=== PATIENT | female | born 1970 | race Caucasian/White ===

== ENCOUNTER 2016-10-19 20:22 | Emergency (ER) | payer OTHER ==
--- NOTE | 2016-10-19 21:24 | DIAGNOSTIC IMAGING REPORT ---
PROCEDURE: XR ANKLE 3 OR 4 VIEWS - RIGHT INDICATION: TRAUMA/INJURY TECHNIQUE: Four views. COMPARISON: None. FINDINGS: Nondisplaced oblique fracture of the distal fibula with overlying soft tissue swelling. Normal ankle mortise. IMPRESSION: 1. Nondisplaced oblique fracture of the distal right fibula
--- NOTE | 2016-10-19 22:36 | ED CLINICAL REPORT ---
Clinical Report - Physicians/Mid Levels [facility] [address] [place] [address] 10/19/2016 20:23 Patient: ADOLFO DELEON Time Seen: 2029; upon arrival, initial patient contact, initial documentation, patient care assumed. Arrived- By private vehicle. Historian- patient. HISTORY OF PRESENT ILLNESS Chief Complaint: Injury to the right ankle. The injury happened just prior to arrival. The patient sustained a twisting injury while walking (walking on wood steps and wood broke and ankle/foot went thru the step). Occurred at home. Patient is experiencing moderate pain. Patient denies injury to the head or neck. No other injury. REVIEW OF SYSTEMS The patient complains of pain on weight bearing. She has had swelling. No tingling, weakness, numbness or skin laceration. All systems otherwise negative, except as recorded above. PAST HISTORY See nurses notes. PROBLEMS: Depression. Hypertension. Fibromyalgia. SVT. --20:37 Ashish Flores R.N. ADDITIONAL SURGERIES: Ablation. . Right hand surgery. --20:37 Ashish Flores R.N. SOCIAL HISTORY Light tobacco smoker. Occasional alcohol use; consumes wine by the glass. No drug use. No recent travel. Is a local resident. FAMILY HISTORY No significant family medical history. ADDITIONAL NOTES The nursing notes have been reviewed with agreement regarding the chief complaint, HPI, ROS, PMH and patient medications and allergies. PHYSICAL EXAM Vital Signs: 10/19/2016 20:32 BP: 133/102. HR: 88. RR: 18. O2 saturation: 98%. Temp: 98 F. Have been reviewed as abnormal and do not appear to be correct. Hypertensive. Heart rate normal. Respiratory rate normal. Temperature normal. Oxygen saturation normal. Appearance: Alert. Oriented X3. No acute distress. LABS, X-RAYS, AND EKG X-Rays: Right ankle. Rt Ankle X-ray: (IMPRESSION: 1. Nondisplaced oblique fracture of the distal right fibula Electronically Final signed by:Bentley Reid MD 10/19/2016 9:24:17 PM). The X-rays were interpreted by the radiologist and contemporaneously by me. PROGRESS AND PROCEDURES Splint Application: Time: 22:35. Posterior short leg fiberglass splint applied to right lower extremity. Splint applied by tech. Reassessed extremity following splint application. Neurovascular intact. Follow-up recommended within 3 days. Course of Care: splint evaluated, asked tech to redo it, splint was curling around toes. Patient counseled in person regarding the patient's stable condition, test results and diagnosis. 21:04. Differential Diagnosis: Other possible considerations: ankle fx vs sprain. Above considerations are based on history, physical exam and X-Ray data. Differential diagnosis was discussed with patient. Disposition: Discharged home in good and improved condition (22:36). Condition: good and stable. CLINICAL IMPRESSION Closed nondisplaced oblique fracture of the distal aspect of the right fibula. No angulated fracture of the fibula. INSTRUCTIONS Apply ice for 20 minutes four times a day for two days until better. Don't apply ice directly to skin. Use crutches until released. Wear fiberglass splint until released. Elevate affected areas above chest level for two days until better. (htn). Warnings: GENERAL WARNINGS: Return or contact your physician immediately if your condition worsens or changes unexpectedly, if not improving as expected, or if other problems arise. Specifically return if problem worsens. Prescription Medications: [place] 5 mg / 325 mg tablets: take 1 to 2 orally every 6 hours as needed for pain. Dispense fifteen (15). No refills. Substitution is permissible. Motrin 800 mg tablets: take 1 tablet orally every 8 hours as needed for pain. Dispense thirty (30). No refills. Substitution is permissible. Understanding of the discharge instructions verbalized by patient. Follow-up with: Morgan Davidson MD, Orthopedic Surgeon, , [address], [facility], [id number] Follow up in about three days even if well. Call for an appointment. Summary of care provided to patient. (Electronically signed by Stephanie Wiseman A.R.N.P. 10/21/2016 13:02)
--- NOTE | 2016-10-19 22:36 | ED NURSING NOTES ---
Clinical Report - Nurses [facility] [address] [place] [address] 10/19/2016 20:23 Patient: ADOLFO DELEON TRIAGE Triage time 2031. Acuity: LEVEL 4. Chief Complaint: INJURY TO RIGHT ANKLE. --20:41 Ashish Flores R.N. 20:32 10/19/16. BP: 133/102. HR: 88. RR: 18. O2 saturation: 98%. Temp: 98 F. Pain level now 11/10. --20:41 Ashish Flores R.N. Weight: 102.5 kg stated. Height/Length: 68 inches Per Patient. BMI: 34.4. --20:37 Ashish Flores R.N. Medications Acyclovir Oral 400 mg, daily. Nortriptyline HCl Oral 10 mg, at bedtime. OxyCODONE HCl Oral 5 mg, as needed. PrednisoLONE Oral eye drops 1%. Protonix Oral 40 mg, daily. --20:35 Ashish Flores R.N. Cymbalta Oral. --20:37 Ashish Flores R.N. Allergies Hydrocodone. Keflex. --20:35 Ashish Flores R.N. History Arrived by private vehicle. Historian: patient. Accompanied by family. 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 SOCIAL HX: Light tobacco smoker- less than 1/2 a pack per day. Alcohol use; consumes wine by the glass occasionally. No drug use. FALL RISK ASSESSMENT: Fall risk assessment completed. No fall risk identified. NUTRITIONAL RISK ASSESSMENT: The nutritional risk assessment revealed no deficiencies. FUNCTIONAL ASSESSMENT: Functional assessment: no impairments noted. LEARNING NEEDS ASSESSMENT: The learning needs assessment revealed no barriers. SKIN INTEGRITY ASSESSMENT: Skin integrity risk assessment completed. No skin integrity risk identified. --20:41 Ashish Flores R.N. The patient has had trouble walking. --20:41 Ashish Flores R.N. ( pt's walking down flight of 2 steps at her home when the top step of broke and her foot went through to the ground sustaining an ankle injury). --21:00 Ashish Flores R.N. PROBLEMS: Depression. Hypertension. Fibromyalgia. SVT. --20:37 Ashish Flores R.N. ADDITIONAL SURGERIES: Ablation. . Right hand surgery. --20:37 Ashish Flores R.N. Interventions ID band on patient. --20:41 Ashish Flores R.N. PHYSICAL ASSESSMENT To room via wheelchair. GENERAL / NEURO / PSYCH: Oriented X 4. Alert. Appears in no acute distress. Appears in pain. EXTREMITIES: Capillary refill is less than 2 seconds in the extremities. Extremity pulses are within normal limits. Right ankle: swelling. Limited ROM secondary to pain (diminished plantar flexion, dorsiflexion, inversion and eversion). SKIN: Skin intact. Skin is warm and dry. --20:42 Ashish Flores R.N. NURSING PROGRESS NOTES Extremity elevated. Reassurance given. Patient identifiers checked. Call light placed in reach. Bed placed in lowest position. Brakes of bed on. --20:42 Ashish Flores R.N. 22:02 Warm blanket to patient per request. --22:03 Jacobo, Rebecca, LUIS MIGUEL Tech1 22:02 10/19/2016 Hydrocodone-APAP (Hydrocodone-Acetaminophen) PO 5/325 mg Tablets 1 tab given. Allergies verified, confirmed 5 rights and sedative warning given to the patient and patient's family. --22:17 Ashish Flores R.N. Short leg posterior fiberglass lower extremity splint applied to right ankle by tech. Distal pulses intact, sensation intact and motor within normal limits. --22:20 Fabian Razo Short leg posterior fiberglass lower extremity splint applied to right ankle by tech. Distal pulses intact, sensation intact and motor within normal limits. ( New splint needed to be applied). --22:43 Fabian Razo. DISPOSITION / DISCHARGE Departure time: 2245. Condition at departure: improved. No learning barriers present. Discharge instructions provided and reviewed with the patient and family. Reviewed warnings. Reviewed medication(s). Treatments reviewed. Reviewed referrals. Patient and family verbalized understanding. Written instructions provided in Pashto. The patient was discharged by the physician front end assistant. She was discharged home and accompanied by family. She left the Emergency Department on crutches and via private vehicle. Family member driving. FALL RISK ASSESSMENT: Fall risk assessment completed. No fall risk identified. --22:46 Ashish Flores R.N. 22:45 10/19/16. BP: 111/98. HR: 88. RR: 16. O2 saturation: 99%. Temp: 98 F. Pain level now 10/13. --22:46 Ashish Flores R.N. Locked/Released at 10/19/2016 22:46 by Ashish Flores R.N.
--- NOTE | 2016-10-19 22:36 | ED ORDER SUMMARY ---
..... Patient: ADOLFO DELEON OrderSheet [facility] VisitID: [id number] [address] [place] [address] 46y, F Registration Date/Time: 10/19/2016 ORDER SHEET Weight: 102.5 kg (stated) Allergies: Hydrocodone, Keflex GENERAL ORDERS: Ankle 3 or 4V Right Urgent (20:36 10/19/2016 HBivens A.R.N.P.) (Ack 20:37 AMcQuoid ER Tech1) (20:50 AMcQuoid ER Tech1) Splint (LE) (Right) (Short Leg Posterior) (21:59 10/19/2016 HBivens A.R.N.P.) (22:20 Bhupinder) Crutches (22:00 10/19/2016 HBivens A.R.N.P.) (22:24 Miriam R.N.) MEDICATION ORDERS: Hydrocodone-APAP PO 5/325 mg (NOW, HIGH ALERT MEDICATION) (22:00 10/19/2016 HBivens A.R.N.P.) (22:17 Miriam R.N.) IV FLUIDS: ORDER SHEET NOTES: [Electronically signed by Ashish Flores R.N. (22:46 10/19/2016)] [Electronically signed by Stephanie Wiseman A.R.N.P. (13:02 10/21/2016)] [Electronically locked/signed by Ashish Flores R.N. (22:46 10/19/2016)]
--- NOTE | 2016-10-19 22:36 | ED NURSING NOTES ---
Clinical Report - Nurses [facility] [address] [place] [address] 10/19/2016 20:23 Patient: ADOLFO DELEON TRIAGE Triage time 2031. Acuity: LEVEL 4. Chief Complaint: INJURY TO RIGHT ANKLE. --20:41 Ashish Flores R.N. 20:32 10/19/16. BP: 133/102. HR: 88. RR: 18. O2 saturation: 98%. Temp: 98 F. Pain level now 11/10. --20:41 Ashish Flores R.N. Weight: 102.5 kg stated. Height/Length: 68 inches Per Patient. BMI: 34.4. --20:37 Ashish Flores R.N. Medications Acyclovir Oral 400 mg, daily. Nortriptyline HCl Oral 10 mg, at bedtime. OxyCODONE HCl Oral 5 mg, as needed. PrednisoLONE Oral eye drops 1%. Protonix Oral 40 mg, daily. --20:35 Ashish Flores R.N. Cymbalta Oral. --20:37 Ashish Flores R.N. Allergies Hydrocodone. Keflex. --20:35 Ashish Flores R.N. History Arrived by private vehicle. Historian: patient. Accompanied by family. 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 SOCIAL HX: Light tobacco smoker- less than 1/2 a pack per day. Alcohol use; consumes wine by the glass occasionally. No drug use. FALL RISK ASSESSMENT: Fall risk assessment completed. No fall risk identified. NUTRITIONAL RISK ASSESSMENT: The nutritional risk assessment revealed no deficiencies. FUNCTIONAL ASSESSMENT: Functional assessment: no impairments noted. LEARNING NEEDS ASSESSMENT: The learning needs assessment revealed no barriers. SKIN INTEGRITY ASSESSMENT: Skin integrity risk assessment completed. No skin integrity risk identified. --20:41 Ashish Flores R.N. The patient has had trouble walking. --20:41 Ashish Flores R.N. ( pt's walking down flight of 2 steps at her home when the top step of broke and her foot went through to the ground sustaining an ankle injury). --21:00 Ashish Flores R.N. PROBLEMS: Depression. Hypertension. Fibromyalgia. SVT. --20:37 Ashish Flores R.N. ADDITIONAL SURGERIES: Ablation. . Right hand surgery. --20:37 Ashish Flores R.N. Interventions ID band on patient. --20:41 Ashish Flores R.N. PHYSICAL ASSESSMENT To room via wheelchair. GENERAL / NEURO / PSYCH: Oriented X 4. Alert. Appears in no acute distress. Appears in pain. EXTREMITIES: Capillary refill is less than 2 seconds in the extremities. Extremity pulses are within normal limits. Right ankle: swelling. Limited ROM secondary to pain (diminished plantar flexion, dorsiflexion, inversion and eversion). SKIN: Skin intact. Skin is warm and dry. --20:42 Ashish Flores R.N. NURSING PROGRESS NOTES Extremity elevated. Reassurance given. Patient identifiers checked. Call light placed in reach. Bed placed in lowest position. Brakes of bed on. --20:42 Ashish Flores R.N. 22:02 Warm blanket to patient per request. --22:03 Jacobo, Rebecca, LUIS MIGUEL Tech1 22:02 10/19/2016 Hydrocodone-APAP (Hydrocodone-Acetaminophen) PO 5/325 mg Tablets 1 tab given. Allergies verified, confirmed 5 rights and sedative warning given to the patient and patient's family. --22:17 Ashish Flores R.N. Short leg posterior fiberglass lower extremity splint applied to right ankle by tech. Distal pulses intact, sensation intact and motor within normal limits. --22:20 Fabian Razo Short leg posterior fiberglass lower extremity splint applied to right ankle by tech. Distal pulses intact, sensation intact and motor within normal limits. ( New splint needed to be applied). --22:43 Fabian Razo. DISPOSITION / DISCHARGE Departure time: 2245. Condition at departure: improved. No learning barriers present. Discharge instructions provided and reviewed with the patient and family. Reviewed warnings. Reviewed medication(s). Treatments reviewed. Reviewed referrals. Patient and family verbalized understanding. Written instructions provided in Romansh. The patient was discharged by the physician human resources assistant. She was discharged home and accompanied by family. She left the Emergency Department on crutches and via private vehicle. Family member driving. FALL RISK ASSESSMENT: Fall risk assessment completed. No fall risk identified. --22:46 Ashish Flores R.N. 22:45 10/19/16. BP: 111/98. HR: 88. RR: 16. O2 saturation: 99%. Temp: 98 F. Pain level now 10/13. --22:46 Ashish Flores R.N. Locked/Released at 10/19/2016 22:46 by Ashish Flores R.N.
--- NOTE | 2016-10-19 22:36 | ED CLINICAL REPORT ---
Clinical Report - Physicians/Mid Levels [facility] [address] [place] [address] 10/19/2016 20:23 Patient: ADOLFO DELEON Time Seen: 2029; upon arrival, initial patient contact, initial documentation, patient care assumed. Arrived- By private vehicle. Historian- patient. HISTORY OF PRESENT ILLNESS Chief Complaint: Injury to the right ankle. The injury happened just prior to arrival. The patient sustained a twisting injury while walking (walking on wood steps and wood broke and ankle/foot went thru the step). Occurred at home. Patient is experiencing moderate pain. Patient denies injury to the head or neck. No other injury. REVIEW OF SYSTEMS The patient complains of pain on weight bearing. She has had swelling. No tingling, weakness, numbness or skin laceration. All systems otherwise negative, except as recorded above. PAST HISTORY See nurses notes. PROBLEMS: Depression. Hypertension. Fibromyalgia. SVT. --20:37 Ashish Flores R.N. ADDITIONAL SURGERIES: Ablation. . Right hand surgery. --20:37 Ashish Flores R.N. SOCIAL HISTORY Light tobacco smoker. Occasional alcohol use; consumes wine by the glass. No drug use. No recent travel. Is a local resident. FAMILY HISTORY No significant family medical history. ADDITIONAL NOTES The nursing notes have been reviewed with agreement regarding the chief complaint, HPI, ROS, PMH and patient medications and allergies. PHYSICAL EXAM Vital Signs: 10/19/2016 20:32 BP: 133/102. HR: 88. RR: 18. O2 saturation: 98%. Temp: 98 F. Have been reviewed as abnormal and do not appear to be correct. Hypertensive. Heart rate normal. Respiratory rate normal. Temperature normal. Oxygen saturation normal. Appearance: Alert. Oriented X3. No acute distress. LABS, X-RAYS, AND EKG X-Rays: Right ankle. Rt Ankle X-ray: (IMPRESSION: 1. Nondisplaced oblique fracture of the distal right fibula Electronically Final signed by:Bentley Reid MD 10/19/2016 9:24:17 PM). The X-rays were interpreted by the radiologist and contemporaneously by me. PROGRESS AND PROCEDURES Splint Application: Time: 22:35. Posterior short leg fiberglass splint applied to right lower extremity. Splint applied by tech. Reassessed extremity following splint application. Neurovascular intact. Follow-up recommended within 3 days. Course of Care: splint evaluated, asked tech to redo it, splint was curling around toes. Patient counseled in person regarding the patient's stable condition, test results and diagnosis. 21:04. Differential Diagnosis: Other possible considerations: ankle fx vs sprain. Above considerations are based on history, physical exam and X-Ray data. Differential diagnosis was discussed with patient. Disposition: Discharged home in good and improved condition (22:36). Condition: good and stable. CLINICAL IMPRESSION Closed nondisplaced oblique fracture of the distal aspect of the right fibula. No angulated fracture of the fibula. INSTRUCTIONS Apply ice for 20 minutes four times a day for two days until better. Don't apply ice directly to skin. Use crutches until released. Wear fiberglass splint until released. Elevate affected areas above chest level for two days until better. (htn). Warnings: GENERAL WARNINGS: Return or contact your physician immediately if your condition worsens or changes unexpectedly, if not improving as expected, or if other problems arise. Specifically return if problem worsens. Prescription Medications: [place] 5 mg / 325 mg tablets: take 1 to 2 orally every 6 hours as needed for pain. Dispense fifteen (15). No refills. Substitution is permissible. Motrin 800 mg tablets: take 1 tablet orally every 8 hours as needed for pain. Dispense thirty (30). No refills. Substitution is permissible. Understanding of the discharge instructions verbalized by patient. Follow-up with: Morgan Davidson MD, Orthopedic Surgeon, , [address], [facility], [id number] Follow up in about three days even if well. Call for an appointment. Summary of care provided to patient. (Electronically signed by Stephanie Wiseman A.R.N.P. 10/21/2016 13:02)
--- NOTE | 2016-10-19 22:36 | ED ORDER SUMMARY ---
..... Patient: ADOLFO DELEON OrderSheet [facility] VisitID: [id number] [address] [place] [address] 46y, F Registration Date/Time: 10/19/2016 ORDER SHEET Weight: 102.5 kg (stated) Allergies: Hydrocodone, Keflex GENERAL ORDERS: Ankle 3 or 4V Right Urgent (20:36 10/19/2016 HBivens A.R.N.P.) (Ack 20:37 AMcQuoid ER Tech1) (20:50 AMcQuoid ER Tech1) Splint (LE) (Right) (Short Leg Posterior) (21:59 10/19/2016 HBivens A.R.N.P.) (22:20 Bhupinder) Crutches (22:00 10/19/2016 HBivens A.R.N.P.) (22:24 Miriam R.N.) MEDICATION ORDERS: Hydrocodone-APAP PO 5/325 mg (NOW, HIGH ALERT MEDICATION) (22:00 10/19/2016 HBivens A.R.N.P.) (22:17 Miriam R.N.) IV FLUIDS: ORDER SHEET NOTES: [Electronically signed by Ashish Flores R.N. (22:46 10/19/2016)] [Electronically signed by Stephanie Wiseman A.R.N.P. (13:02 10/21/2016)] [Electronically locked/signed by Ashish Flores R.N. (22:46 10/19/2016)]
--- NOTE | 2016-10-21 13:02 | ED MED RECONCILIATION SUMMARY ---
Patient: ADOLFO DELEON Medication Reconciliation Report [facility] VisitID: [id number] [address] [place] [address] 46y, F Registration Date/Time: 10/19/2016 Weight: 102.5 kg Height/Length: 68 in. BMI: 34.4 ALLERGIES: Hydrocodone, Keflex The patient's Home Medications are listed below: THE FOLLOWING MEDICATIONS NEED TO BE RECONCILED: Acyclovir Oral 400 mg, daily Cymbalta Oral Nortriptyline HCl Oral 10 mg, at bedtime OxyCODONE HCl Oral 5 mg PrednisoLONE Oral eye drops 1% Protonix Oral 40 mg, daily The source(s) of the original Home Medication information: Not obtained. The following Medications were given to the patient in the Emergency Department: Hydrocodone-APAP [PO] PO 1 tab, administered: 10/19/2016 10:02:00 PM The following Medications were prescribed to the patient: [place] 5 mg / 325 mg tablets: take 1 to 2 orally every 6 hours as needed for pain. Dispense fifteen (15). No refills. Substitution is permissible. -- Stephanie Wiseman, Jigar.R.N.P. Motrin 800 mg tablets: take 1 tablet orally every 8 hours as needed for pain. Dispense thirty (30). No refills. Substitution is permissible. -- Stephanie Wiseman A.R.N.P.
--- NOTE | 2016-10-21 13:02 | ED DISCHARGE INSTRUCTIONS ---
Patient: ADOLFO DELEON General Instructions [facility] VisitID: [id number] [address], [place], [place] [id number] 46y, F Registration Date/Time: 10/19/2016 Closed nondisplaced oblique fracture of the distal aspect of the right fibula. No angulated fracture of the fibula. INSTRUCTIONS Apply ice for 20 minutes four times a day for two days until better. Don't apply ice directly to skin. Use crutches until released. Wear fiberglass splint until released. Elevate affected areas above chest level for two days until better. (htn). Warnings: GENERAL WARNINGS: Return or contact your physician immediately if your condition worsens or changes unexpectedly, if not improving as expected, or if other problems arise. Specifically return if problem worsens. Prescription Medications: [place] 5 mg / 325 mg tablets: take 1 to 2 orally every 6 hours as needed for pain. Dispense fifteen (15). No refills. Substitution is permissible. Motrin 800 mg tablets: take 1 tablet orally every 8 hours as needed for pain. Dispense thirty (30). No refills. Substitution is permissible. Understanding of the discharge instructions verbalized by patient. Follow-up with: Morgan Davidson MD, Orthopedic Surgeon, , [address] [facility] [id number] Follow up in about three days even if well. Call for an appointment. Summary of care provided to patient. ADDITIONAL INFORMATION Fracture,Ankle, Distal Fibula You have a fracture (broken bone) of the end of the fibula bone. This is one of two bones that support the ankle joint. Home Care: You will be given a splint, cast or special boot to prevent movement at the site of injury. Do not put weight on a splint; it will break. Follow your doctor's advice regarding when to begin bearing weight on a cast or boot. Keep your leg elevated when sitting or lying down. When sleeping, place a pillow under the injured leg. When sitting, support the injured leg so it is level with your waist. This is very important during the first 48 hours. Keep the cast/splint completely dry at all times. When bathing, protect the cast/splint with a large plastic bag, rubber-banded at the top end. If a fiberglass cast or splint gets wet, you can dry it with a hair-dryer. Place an ice pack (ice cubes in a plastic bag, wrapped in a towel) on the splint/cast over the injured area for 20 minutes every 2 hours during the first day.You can place the ice pack directly over the splint/cast. Continue this 3-4 times a day for the next two days. You may use acetaminophen (Tylenol) or ibuprofen (Motrin, Advil) to control pain, unless another pain medicine was prescribed. [NOTE: If you have chronic liver or kidney disease or ever had a stomach ulcer or GI bleeding, talk with your doctor before using these medicines.] Follow Up with your doctor in one week, or as advised by our staff, to be sure the bone is healing properly. If you were given a splint, it may be changed to a cast after the swelling goes down. [NOTE: A radiologist will review any X-rays that were taken. We will notify you of any new findings that may affect your care.] Get Prompt Medical Attention if any of the following occur: The plaster cast or splint becomes wet or soft The fiberglass cast or splint remains wet for more than 24 hours Increased tightness or pain under the cast or splint Toes become swollen, cold, blue, numb or tingly Crutch Walking Crutch Adjustment Make sure the crutches you use are adjusted to fit you. When you stand, there should be room to fit 2-3 fingers between the top of the crutch and your armpit. Your elbow should be slightly bent when holding the hand banjo repair person. Crutch Walking: Place the crutches forward 12" in front of and 6" to the side of your feet. Lean your weight forward as you push down on the handgrips. Your weight should be on your hands and yourstrong leg, not your armpits . Let your body swing through, landing on the strong leg. Advance the crutches forward again. The crutch and the injured leg should move together. Going Up Steps: ("Up with the good") With both crutches on the same step as your feet, push down on the handgrips. Balancing with very light pressure on the weak leg, let your hands support your weight as you raise your strong leg onto the next higher step. Transfer all your weight to your strong leg (still bent) as you move the crutches up to the next step alongside the strong leg. With your weight evenly balanced on the two crutches and your strong leg, straighten your strong knee as you raise the weak leg up to the next step. Going Down Steps: ("Down with the bad") With both crutches on the same step as your feet, push down on the handgrips. With your weight evenly balanced on the two crutches and your strong leg, bend your strong knee as you lower the weak leg down to the next step. Let your strong leg support you (still bent) as you move the crutches down alongside the weak leg. Transfer your weight to your hands, balancing with very light pressure on the weak leg as you lower your strong leg alongside your weak leg. Splint Care, Fiberglass The following will help you care for your splint: It will take up totwo hours for your fiber glass splint to fully harden; therefore, do notapply any pressure on it during that time or else it may break. To prevent swelling under the splint, for thefirst 48 hours: If the splint is on yourarm, keep it in a sling or raised to shoulder level when sitting or standing; rest it on your chest or on a pillow at your side when lying down. If the splint is on yourfoot, keep it propped up above the level of your waist when sitting or lying. Avoid crutch walking as much as possible during this time. Keep the splint/cast dry at all times. Bathe with your splint/cast well out of the water, protected with a large plastic bag, rubber-banded at the top end. If a fiberglass cast or splint gets wet, you can dry it with a hair-dryer. Follow-up care Follow up with your doctor or this facility as advised. When to seek medical care Get prompt medical attention if any of the following occur: Bad odor from the splint or wound-fluid stains the splint The splint cracks or remains wet over 24 hours Increasing tightness or pressure under the splint Fingers or toes become swollen, cold, blue, numb or tingly Increased pain under the splint Hydrocodone Bitartrate, Acetaminophen Oral tablet What is this medicine? ACETAMINOPHEN; HYDROCODONE (a set a RAVI beto fen; brittaney droe KOE done) is a pain reliever. It is used to treat mild to moderate pain. How should I use this medicine? Take this medicine by mouth. Swallow it with a full glass of water. Follow the directions on the prescription label. If the medicine upsets your stomach, take the medicine with food or milk. Do not take more than you are told to take. Talk to your flatwork presser regarding the use of this medicine in children. This medicine is not approved for use in children. What side effects may I notice from receiving this medicine? Side effects that you should report to your doctor or health intensive care unit registered nurse as soon as possible: allergic reactions like skin rash, itching or hives, swelling of the face, lips, or tongue breathing problems confusion feeling faint or lightheaded, falls stomach pain yellowing of the eyes or skin Side effects that usually do not require medical attention (report to your doctor or health intensive care unit registered nurse if they continue or are bothersome): nausea, vomiting stomach upset What may interact with this medicine? alcohol antihistamines isoniazid medicines for depression, anxiety, or psychotic disturbances medicines for sleep muscle relaxants naltrexone narcotic medicines (opiates) for pain phenobarbital ritonavir tramadol What if I miss a dose? If you miss a dose, take it as soon as you can. If it is almost time for your next dose, take only that dose. Do not take double or extra doses. Where should I keep my medicine? Keep out of the reach of children. This medicine can be abused. Keep your medicine in a safe place to protect it from theft. Do not share this medicine with anyone. Selling or giving away this medicine is dangerous and against the law. Store at room temperature between 15 and 30 degrees C (59 and 86 degrees F). Protect from light. Keep container tightly closed. Throw away any unused medicine after the expiration date. Discard unused medicine and used packaging carefully. Pets and children can be harmed if they find used or lost packages. What should I tell my health care provider before I take this medicine? They need to know if you have any of these conditions: brain tumor Crohn's disease, inflammatory bowel disease, or ulcerative colitis drink more than 3 alcohol-containing drinks per day drug abuse or addiction head injury heart or circulation problems kidney disease or problems going to the bathroom liver disease lung disease, asthma, or breathing problems an unusual or allergic reaction to acetaminophen, hydrocodone, other opioid analgesics, other medicines, foods, dyes, or preservatives or trying to get breast-feeding What should I watch for while using this medicine? Tell your doctor or health intensive care unit registered nurse if your pain does not go away, if it gets worse, or if you have new or a different type of pain. You may develop tolerance to the medicine. Tolerance means that you will need a higher dose of the medicine for pain relief. Tolerance is normal and is expected if you take the medicine for a long time. Do not suddenly stop taking your medicine because you may develop a severe reaction. Your body becomes used to the medicine. This does NOT mean you are addicted. Addiction is a behavior related to getting and using a drug for a non-medical reason. If you have pain, you have a medical reason to take pain medicine. Your doctor will tell you how much medicine to take. If your doctor wants you to stop the medicine, the dose will be slowly lowered over time to avoid any side effects. You may get drowsy or dizzy when you first start taking the medicine or change doses. Do not drive, use machinery, or do anything that may be dangerous until you know how the medicine affects you. Stand or sit up slowly. There are different types of narcotic medicines (opiates) for pain. If you take more than one type at the same time, you may have more side effects. Give your health care provider a list of all medicines you use. Your doctor will tell you how much medicine to take. Do not take more medicine than directed. Call emergency for help if you have problems breathing. The medicine will cause constipation. Try to have a bowel movement at least every 2 to 3 days. If you do not have a bowel movement for 3 days, call your doctor or health intensive care unit registered nurse. Too much acetaminophen can be very dangerous. Do not take Tylenol (acetaminophen) or medicines that contain acetaminophen with this medicine. Many non-prescription medicines contain acetaminophen. Always read the labels carefully. Ibuprofen Oral tablet What is this medicine? IBUPROFEN (eye BYOO proe fen) is a non-steroidal anti-inflammatory drug (NSAID). It is used for dental pain, fever, headaches or migraines, osteoarthritis, rheumatoid arthritis, or painful monthly periods. It can also relieve minor aches and pains caused by a cold, flu, or sore throat. How should I use this medicine? Take this medicine by mouth with a glass of water. Follow the directions on the prescription label. Take this medicine with food if your stomach gets upset. Try to not lie down for at least 10 minutes after you take the medicine. Take your medicine at regular intervals. Do not take your medicine more often than directed. A special MedGuide will be given to you by the pharmacist with each prescription and refill. Be sure to read this information carefully each time. Talk to your flatwork presser regarding the use of this medicine in children. Special care may be needed. What side effects may I notice from receiving this medicine? Side effects that you should report to your doctor or health intensive care unit registered nurse as soon as possible: allergic reactions like skin rash, itching or hives, swelling of the face, lips, or tongue black or bloody stools, blood in the urine or in vomit breathing problems changes in vision chest pain general ill feeling or flu-like symptoms nausea or vomiting redness, blistering, peeling or loosening of the skin, including inside the mouth slurred speech or weakness on one side of the body stomach pain unexplained weight gain or swelling unusually weak or tired yellowing of eyes or skin Side effects that usually do not require medical attention (report to your doctor or health intensive care unit registered nurse if they continue or are bothersome): constipation or diarrhea dizziness gas or heartburn stomach upset What may interact with this medicine? Do not take this medicine with any of the following medications: cidofovir ketorolac methotrexate pemetrexed This medicine may also interact with the following medications: alcohol aspirin diuretics lithium other drugs for inflammation like prednisone warfarin What if I miss a dose? If you miss a dose, take it as soon as you can. If it is almost time for your next dose, take only that dose. Do not take double or extra doses. Where should I keep my medicine? Keep out of the reach of children. Store at room temperature between 15 and 30 degrees C (59 and 86 degrees F). Keep container tightly closed. Throw away any unused medicine after the expiration date. What should I tell my health care provider before I take this medicine? They need to know if you have any of these conditions: asthma cigarette smoker drink more than 3 alcohol containing drinks a day heart disease or circulation problems such as heart failure or leg edema (fluid retention) high blood pressure kidney disease liver disease stomach bleeding or ulcers an unusual or allergic reaction to ibuprofen, aspirin, other NSAIDS, other medicines, foods, dyes, or preservatives or trying to get breast-feeding What should I watch for while using this medicine? Tell your doctor or healthcare professional if your symptoms do not start to get better or if they get worse. This medicine does not prevent heart attack or stroke. In fact, this medicine may increase the chance of a heart attack or stroke. The chance may increase with longer use of this medicine and in people who have heart disease. If you take aspirin to prevent heart attack or stroke, talk with your doctor or health intensive care unit registered nurse. Do not take other medicines that contain aspirin, ibuprofen, or naproxen with this medicine. Side effects such as stomach upset, nausea, or ulcers may be more likely to occur. Many medicines available without a prescription should not be taken with this medicine. This medicine can cause ulcers and bleeding in the stomach and intestines at any time during treatment. Ulcers and bleeding can happen without warning symptoms and can cause . To reduce your risk, do not smoke cigarettes or drink alcohol while you are taking this medicine. You may get drowsy or dizzy. Do not drive, use machinery, or do anything that needs mental alertness until you know how this medicine affects you. Do not stand or sit up quickly, especially if you are an older patient. This reduces the risk of dizzy or fainting spells. This medicine can cause you to bleed more easily. Try to avoid damage to your teeth and gums when you brush or floss your teeth. You have been given the following additional information: Ankle Fracture (Distal Fibula), Closed Crutch Walking Splint Care, Fiberglass Hydrocodone Bitartrate, Acetaminophen Oral tablet Ibuprofen Oral tablet (Electronically signed by Stephanie Wiseman A.R.N.P. 10/21/2016 13:02)
--- NOTE | 2016-10-21 13:02 | ED MAR SUMMARY ---
..... Medication Administration Record [facility] [address] [place] [address] Patient: ADOLFO DELEON Visit ID: [id number] 46y, F Weight: 102.5 kg Height/Length: 68 in BMI: 34.4 ALLERGIES: Hydrocodone, Keflex Given 22:02 10/19/2016 Ashish Flores R.N. Medication Administered: HYDROCODONE-APAP [PO] (HYDROCODONE-ACETAMINOPHEN), Dose: 1 tab 5/325 mg Tablets PO. Medication Ordered: Hydrocodone-APAP PO 5/325 mg (NOW, HIGH ALERT MEDICATION).
--- NOTE | 2016-10-21 13:02 | ED MAR SUMMARY ---
..... Medication Administration Record [facility] [address] [place] [address] Patient: ADOLFO DELEON Visit ID: [id number] 46y, F Weight: 102.5 kg Height/Length: 68 in BMI: 34.4 ALLERGIES: Hydrocodone, Keflex Given 22:02 10/19/2016 Ashish Flores R.N. Medication Administered: HYDROCODONE-APAP [PO] (HYDROCODONE-ACETAMINOPHEN), Dose: 1 tab 5/325 mg Tablets PO. Medication Ordered: Hydrocodone-APAP PO 5/325 mg (NOW, HIGH ALERT MEDICATION).
--- NOTE | 2016-10-21 13:02 | ED MED RECONCILIATION SUMMARY ---
Patient: ADOLFO DELEON Medication Reconciliation Report [facility] VisitID: [id number] [address] [place] [address] 46y, F Registration Date/Time: 10/19/2016 Weight: 102.5 kg Height/Length: 68 in. BMI: 34.4 ALLERGIES: Hydrocodone, Keflex The patient's Home Medications are listed below: THE FOLLOWING MEDICATIONS NEED TO BE RECONCILED: Acyclovir Oral 400 mg, daily Cymbalta Oral Nortriptyline HCl Oral 10 mg, at bedtime OxyCODONE HCl Oral 5 mg PrednisoLONE Oral eye drops 1% Protonix Oral 40 mg, daily The source(s) of the original Home Medication information: Not obtained. The following Medications were given to the patient in the Emergency Department: Hydrocodone-APAP [PO] PO 1 tab, administered: 10/19/2016 10:02:00 PM The following Medications were prescribed to the patient: [place] 5 mg / 325 mg tablets: take 1 to 2 orally every 6 hours as needed for pain. Dispense fifteen (15). No refills. Substitution is permissible. -- Stephanie Wiseman, Jigar.R.N.P. Motrin 800 mg tablets: take 1 tablet orally every 8 hours as needed for pain. Dispense thirty (30). No refills. Substitution is permissible. -- Stephanie Wiseman A.R.N.P.
== END 2016-10-19 22:47 | disposition home or self-care (01) ==
LOC: ED SRH 20:22
DX: S82.831A Other fracture of upper and lower end of right fibula, initial encounter for closed fracture (principal); X50.1XXA Overexertion from prolonged static or awkward postures, initial encounter; Y93.01 Activity, walking, marching and hiking; Y92.009 Unspecified place in unspecified non-institutional (private) residence as the place of occurrence of the external cause; Y99.9 Unspecified external cause status; I10 Essential (primary) hypertension; F17.210 Nicotine dependence, cigarettes, uncomplicated; Z79.899 Other long term (current) drug therapy; Z88.1 Allergy status to other antibiotic agents; Z88.5 Allergy status to narcotic agent